=== PATIENT | female | born 1960 | race Caucasian/White ===

== ENCOUNTER 2016-09-06 21:25 | Emergency (ER) | payer BC, OTHER ==
[2016-09-06] MEDS ORDERED: Triple Antibiotic Oint 1 GM Packet ONE (21:53)
== END 2016-09-06 22:05 | disposition home or self-care (01) ==
LOC: MADERS 21:25
DX: S01.01XA Laceration without foreign body of scalp, initial encounter (principal); E03.9 Hypothyroidism, unspecified; W22.8XXA Striking against or struck by other objects, initial encounter
CPT/HCPCS: 99283